=== PATIENT | male | born 1985 | race African-American/Black ===

== ENCOUNTER 2017-04-28 20:33 | Emergency (ER) | payer SELFPAY | END 2017-04-28 21:08 | disposition left against medical advice (07) | LOC: ERS 20:33 | DX: Z53.21 Procedure and treatment not carried out due to patient leaving prior to being seen by health care provider (principal) ==

== ENCOUNTER 2017-04-29 02:41 | Emergency (ER) | payer BC, SELFPAY ==
[2017-04-29] MEDS ORDERED: Ketorolac Tromethamine 30 MG/ML VIAL ONE (04:02)
--- NOTE | 2017-04-29 07:47 | RAD ---
THREE VIEWS RIGHT ANKLE: HISTORY: Right ankle pain after trauma. TECHNIQUE: AP, lateral, and oblique views of the right ankle are obtained. FINDINGS: No evidence of right ankle fractures, subluxations, or bony lesions seen. IMPRESSION: Normal three views, right ankle. POS: [facility]
--- NOTE | 2017-04-29 07:59 | RAD ---
3 VIEWS RIGHT FOOT: Date: 04/29/17 HISTORY: Right foot injury and pain. FINDINGS: AP, lateral, and oblique views of right foot obtained. Three views of the right foot demonstrate no e vidence of right foot fractures, subluxations, or bony lesions. IMPRESSION: Normal 3 views right foot. POS: [facility]
== END 2017-04-29 04:40 | disposition home or self-care (01) ==
LOC: ERS 02:41
DX: S93.401A Sprain of unspecified ligament of right ankle, initial encounter (principal); X50.1XXA Overexertion from prolonged static or awkward postures, initial encounter; Y93.67 Activity, basketball
CPT/HCPCS: 96372; J1885

== ENCOUNTER 2018-02-09 11:29 | Emergency (ER) | payer BC ==
[2018-02-09 12:06] LABS: #Basophils 0.1 thou/uL (0.0-0.2); #Eosinphils 0.3 thou/uL (0.0-0.7); #Lymphocytes 1.4 thou/uL (1.20-3.40); #Monocytes 0.7 thou/uL (0.11-0.59); #Neutrophils 3.9 thou/uL (1.40-6.50); %Eosinophils 4.4 % (0.0-10.0); %Lymphocytes 21.7 % (21.0-51.0); %Monocytes 10.9 % (0.0-10.0); Hemoglobin 16.6 g/dL (14.0-18.0); Mean Corpuscular HGB CONC 33.1 g/dL (32.0-36.0); Mean Corpuscular Hemoglobin 30.6 pg (27.0-31.0); Mean Corpuscular Volume 92.3 fL (78.0-98.0); Mean Platelet Volume 8.8 fL (7.4-10.4); Platelet Count 180 thou/uL (130-400); RBC Distribution Width 11.6 % (11.5-14.5); Red Blood Cell (RBC) Count 5.42 mill/uL (4.70-6.10); White Blood Cell (WBC) Count 6.3 thou/uL (4.8-10.8)
--- NOTE | 2018-02-09 12:17 | RAD ---
PA AND LATERAL CHEST RADIOGRAPH: Date: 02-09-18 History: Chest pain. FINDINGS: The cardiac silhouette and pulmonary vasculature are within normal limits. The lungs are clear. [place] structures are intact. IMPRESSION: No acute cardiopulmonary process. POS: [facility]
[2018-02-09 12:33] LABS: ALT (SGPT) 20 U/L (8-55); AST (SGOT) 33 U/L (5-34); Albumin 5.2 g/dL (3.5-5.0); Alkaline Phosphatase 78 U/L (40-150); Anion Gap 16 mmol/L (10-20); BUN (Urea Nitrogen) 10 mg/dL (8.9-20.6); Bilirubin, Total 0.8 mg/dL (0.2-1.2); Calc. Creatinine Clearance 0 mL/min (70-130); Calcium 9.7 mg/dL (7.8-10.44); Carbon Dioxide 24 mmol/L (22-29); Chloride 102 mmol/L (98-107); Estimated GFR-MDRD Greater than 90; Globulin 3.1 g/dL (2.4-3.5); Glucose 87 mg/dL (70-105); Potassium 4.3 mmol/L (3.5-5.1); Protein, Total 8.3 g/dL (6.0-8.3); Sodium 138 mmol/L (136-145)
== END 2018-02-09 15:26 | disposition home or self-care (01) ==
LOC: ERS 11:29
DX: J06.9 Acute upper respiratory infection, unspecified (principal); R07.9 Chest pain, unspecified; Z71.6 Tobacco abuse counseling; F17.200 Nicotine dependence, unspecified, uncomplicated
CPT/HCPCS: 36415; 71046; 80053; 82550; 84484; 85025; 87804; 93005; 94640; 99406; J7620